=== PATIENT | female | born 1955 | race Caucasian/White ===

== ENCOUNTER 2016-05-13 09:18 | Day surgery (SDC) | payer OTHER, MEDICARE ==
[~2016-05-13] VITALS: Ht 165.1 cm; Wt 109.1 kg
[2016-05-13] VITALS (7 sets, daily range): BP systolic 107–148; BP diastolic 58–88; PULSE 67–93; RESP 14–26; O2SAT 93–100
--- NOTE | 2016-05-13 07:36 | PCM.HPANE ---
Patient Data Surgeon Admitting Provider: Attending Provider:Faye Aggarwal MD Primary Care Physician:Chiquita Paulino MD Other Provider:[facility] Reason for Visit Mixed Incontinence Ht/WT & BMI Height (Feet): 5 Height (Inches): 5 Weight (Kilograms): 110.585 Body Mass Index 40.00 Allergies Coded Allergies: Penicillins (Verified Allergy, Severe, SWELLING,HIVES, 05/12/16) azithromycin (Verified Allergy, Severe, HIVES, 05/12/16) vancomycin (Verified Allergy, Severe, HIVES, 05/12/16) FREEMAN Inhibitors (Verified Adverse Reaction, Severe, COUGH/DRY MOUTH, ) Sulfa (Sulfonamide Antibiotics) (Verified Adverse Reaction, Severe, SORES IN MOUTH, 05/12/16) colchicine (Verified Adverse Reaction, Severe, N&V, 05/12/16) Uncoded Allergies: ERYTHROMYCIN (Adverse Reaction, Severe, N/V, DIARRHEA, 05/12/16) Past Anesthesia History Anesthesia History: Denies:: Abnormal Airway, Anesthesia Reactions, Difficult Intubation, Fam Anesthesia Reaction, Malignant Hyperthermia Diabetes History Hx Diabetes?: Yes Type of Diabetes: Type II Glycemic Control: Insulin & Oral Medication MRSA MRSA: No Medications Hypertension Medication: Yes (LOSARTAN) Home Meds Incl Beta Sergio: Yes (METOPROLOL) Reported Medications Insulin Detemir (Levemir Flextouch)100 Unit/1 Ml Insuln.pen20 Unit SQ QPM 05/12/16 Milk Thistle Seed Extract (Milk Thistle Extract)87.5 Mg Yssfpik49.5 Mg PO DAILY PT UNSURE OF DOSAGE 05/12/16 Pravastatin 40 Mg Ctbcup69 Mg PO DAILY Ref 0 05/12/16 Omeprazole 20 Mg Capsule.dr20 Mg PO DAILY Ref 0 05/12/16 Metoprolol Tartrate 25 Mg Kvkmno73 Mg PO BID 30 Days Ref 0 05/12/16 Insulin Lispro (Humalog Kwikpen)200 Unit/Ml (3 Ml) Insuln.pen50 Unit SQ BID 05/12/16 Coconut Oil 1,000 Mg Capsule1,000 Mg PO DAILY 05/12/16 Vit B Comp/C/FA/Iron/Vit E (Vitamin B Complex Tablet)1 Each Tablet1 Each PO DAILY 05/12/16 [Sanctura] No Conflict Check20 Mg PO BID 05/12/16 Multivitamin (Multi Vitamin Daily)1 Each Tablet1 Each PO DAILY 30 Days Ref 0 06/23/14 Losartan Potassium 50 Mg Gpenza32 Mg PO DAILY 02/10/14 Glyburide/Metformin 5-500 mg 1 Each Tablet2 Each PO BID 02/10/14 Levothyroxine 150 Mcg Ykneww873 Mcg PO DAILY 30 Days Ref 0 02/10/14 Fenofibrate (Tricor)145 Mg Kpm368 Mg PO DAILY 30 Days Ref 0 02/10/14 Duloxetine 60 Mg Capsule.dr60 Mg PO DAILY 30 Days Ref 0 02/10/14 Discontinued Reported Medications Tramadol 50 Mg Xuqnbf68 Mg PO HS PRN For Pain Ref 0 06/23/14 Canagliflozin (Invokana)300 Mg Akprfm065 Mg PO 06/23/14 Fish Oil/Dha/Epa (Fish Oil 1,200 mg Fish Oil)1 Each Capsule1 Each PO DAILY 02/10/14 Insulin Glargine (Lantus U100 Solostar Insulin Pen)100 Unit/1 Ml Insuln.pen50 Unit SUBQ QPM-INSULIN #1 PENINJ Ref 0 02/10/14 Citalopram 40 Mg Qtilws84 Mg PO DAILY 30 Days Ref 0 02/10/14 Colesevelam HCl (Welchol)625 Mg Ottzje778 Mg PO DAILY 02/10/14 Buspirone 10 Mg Klpmnx02 Mg PO DAILY 30 Days Ref 0 02/10/14 Omeprazole Magnesium (Omeprazole)20 Mg Capsule.dr20 Mg PO DAILY 30 Days Ref 0 02/10/14 History History of ENT Problems?: Yes HEENT History: Denies:: Abnormal Airway Cataracts (developing ) Difficult Intubation Dysphagia Sinus Problem TMJ Other HEENT Pertinent History: S/P TONSILLECTOMY Hx of Heart Problems?: Yes Cardiovascular History: Positive for:: Abdominal Aortic Aneurism (MILDLY ENLARGED ASCENDING AORTA) Cardiac Surgery (HEART CATH/STENT 2006 [facility]CA STENT) Coronary Artery Disease Hypertension (HYPERLIPIDEMIA) Peripheral Vascular (LE VARICES) Denies:: AICD Heart Murmur (ECHO 02/2015 EF 60-65%) Irregular Heartbeat Pacemaker Valvular Heart Disease Other History/Comments denies any recent cardiac issues, most recent note from Dr Rendon reviewed. Hx of Respiratory Problem?: Yes Respiratory History: Positive for:: Use of C-PAP Machine (CONSUELO + W/ BIPAP) Denies:: Asthma COPD Cough Emphysema Pneumonia Tuberculosis Hx Neurologic Problems?: Yes Neurological History: Positive for:: Headaches Seizures ( stopped medications, no seizures for almost 2 years (LAST 11/2012)) TIA () Denies:: CVA Multiple Sclerosis Parkinson's Disease Other Neurological Pertinent: PT IS DISABLED FROM "STRESS SEIZURES" Hx of GI Problems?: Yes Gastrointestinal History: Positive for:: Gastroesphageal Reflux Hiatal Hernia Liver Disease (HX FATTY LIVER DISEASE W/ ELEVATED LFT'S (TO BE RECHECKED IN 1 MONTH)) Rectal Bleeding (2007- passing black stools, never found out why) Denies:: Cirrhosis Gastrointestinal Bleeding Other GI Pertinent History: S/P APPY,UMBILICAL HERNIA RPR Hx of Problems?: Yes Genitourinary History: Positive for:: Urinary Tract Infection (HX UTI'S) Other Pertinent History: C/OF FREQUENCY,URGENCY & URINARY DRIBBLING Female Hx: Positive for:: Problems with Breasts? (RT BREAST CA S/P B/L MASTECTOMY/BR AUGMENTATION W/ REVISIONS) Denies:: Currently (S/P RECTOCELE RPR) Skin History: Positive for:: History Skin Disorders? (ECZEMA/HIVES) Denies:: Pressure Ulcers Hx Musculoskeletal Problems?: Yes Musculoskeletal History: Positive for:: Musculoskeletal Trauma (LT SHOULDER RPR,RT KNEE RPR,B/L CTR'S) Hx of Psycho/Social Problems?: Yes Psycho Social History: Positive for:: Anxiety Bipolar Disorder Hx Depression Hx Surgeries?: Yes (b/l mastectomy w/ reconstr,heart cath/stent,rectocele,hyst, tonsils,appu,umb) Hx Any Other Health Problems?: Yes Other History: Positive for:: Cancer (BREAST AND CERVICAL) Hospitalization Thyroid Disease (s/p thyroidectomy) Denies:: Endocrine Disease History Blood Transfusions: Positive for:: Blood Transfusions Denies:: Blood Transfuse Reaction Hx Diabetes: Yes Hx Alcohol Use: No (FORMER)Hx Substance Use: No Smoking Status: Former Smoker Have You Smoked inLast 12 mo: NoApprox How Many Cigarettes/day: 3 PPD Stop/Bang S-Snoring: Do You Snore Loudly: Yes T-Tired: feel tired, fatigued: Yes O-Obsered: Observed not breath: No P-Blood Pressure: treated: Yes B- Body Mass Index > 35 kg/m2: Yes A- Age over 50: Yes N- Neck Large Circumference: Yes G- Gender Male: No CONSUELO Total Score: 6 CONSUELO Risk Assessment: High Risk, =/>3 Yes CONSUELO Category 4 OutPt Procedure: Yes Risk Assessment Category Category 1A: Patient has history of documented sleep apnea, and HAS NOT received any narcotic, sedative or anesthesia administration during this stay. Category 1B: Patient has history of documented sleep apnea, and HAS received any narcotic , sedative or anesthesia administration during this stay Category 2: Patient has SUSPECTED Obstructive Sleep Apnea, and HAS received any narcotic , sedative or anesthesia administration during this stay. Category 3: Patient has SUSPECTED Obstructive Sleep Apnea and HAS NOT received narcotic, sedative or anesthesia administration during this stay. Category 4: Outpatient in Procedural Areas with known sleep apnea or who screen positive for High Risk via the STOP/BANG questionnaire. Exam Exam General Appearance: Alert, Oriented X3, Cooperative, No Acute Distress HEENT/AIRWAY: MP 3 Lungs: Normal Air Movement Heart: Exam Unremarkable Meds/Labs/Diagnostics Bedside Blood Glucose: 218 Plan Impression Patient chart reviewed, patient interviewed and anesthestic plan with risks, benefits, and alternatives discussed, and informed consent obtained. NPO Status: 06/24@1830 ASA Physical Status: ASA3 Severe Disease Anesthetic Plan: GA Bene/Risks/Altern/Consents: Yes HP Complete Prior to Induction: Yes Osorio Quiroz MD May 13, 2016 07:36
[~2016-05-13 09:18] MED LIST: COCO1000 PO; DULO60CA61 PO; FENO160T PO; GLYB1TAB20 PO; INSU100I25 SQ; INSU200I SQ; LEVO150T5 PO; LOSA50TA37 PO; Levofloxacin 500 mg/100 mL D5W IV ONE; METO25TA6 PO; MILK87.5 PO; MULT-1018 PO; OMEP20CA11 PO; PRAV40TA PO; SANCTURA PO; VIT1TABL83 PO
[2016-05-13] MEDS ORDERED: EPHEDrine/NS 5 mg/mL 5 mL Syringe ONE (09:19)
[2016-05-13] MEDS ORDERED: Propofol 10,000 mCg/mL 20 mL Inj ONE (09:19)
[2016-05-13] MEDS ORDERED: Phenylephrine/NS-PF 100 mCg/mL 5 mL Syringe IVPUSH ONE (09:19)
[2016-05-13] MEDS ORDERED: Dexamethasone 4 mg/mL Inj ONE (09:19)
[2016-05-13] MEDS ORDERED: fentaNYL-PF 50 mCg/mL 2 mL Inj ONE (09:19)
[2016-05-13] MEDS ORDERED: Ondansetron 2 mg/mL 2 mL Inj ONE (09:19)
[2016-05-13] MEDS ORDERED: levoFLOXacin 500 mg/100 mL D5W Premix IV ONE (09:24)
[2016-05-13] MEDS: Lactated Ringer's 1,000 ML IV SCH ×2 (09:44→12:04)
[2016-05-13] MEDS ORDERED: MetoCLOpramide 5 mg/mL 2 mL Inj IVPUSH PRN (11:50)
[2016-05-13] MEDS ORDERED: EPHEDrine Sulfate 50 mg/mL Inj IVPUSH PRN (11:50)
[2016-05-13] MEDS ORDERED: fentaNYL-PF 50 mCg/mL 2 mL Inj IVPUSH PRN (11:50)
[2016-05-13] MEDS ORDERED: Lactated Ringer's 1,000 ML IV SCH (11:50)
[2016-05-13] MEDS ORDERED: HYDROmorphone 1 mg/mL Inj IVPUSH PRN (11:50)
[2016-05-13] MEDS ORDERED: Ondansetron 2 mg/mL 2 mL Inj IVPUSH PRN (11:50)
[2016-05-13] MEDS ORDERED: Dexamethasone 4 mg/mL Inj IVPUSH PRN (11:50)
[2016-05-13] MEDS ORDERED: Phenylephrine 10,000 mCg/mL Inj IVPUSH PRN (11:50)
[2016-05-13] MEDS ORDERED: Lactated Ringer's 500 ML IV PRN (11:50)
[2016-05-13] MEDS ORDERED: Albuterol-Ipratropium 3 mL Inhalation Solution NEB PRN (11:50)
[2016-05-13] MEDS ORDERED: Phenazopyridine 97.5 mg Tablet PO PRN (12:45)
[2016-05-13] MEDS ORDERED: HYDROcodone-APAP 5-325 mg Tablet PO PRN (12:45)
[2016-05-13] MEDS ORDERED: Ondansetron 8 mg ODT Tablet PO PRN (12:45)
--- NOTE | 2016-05-13 13:02 | PCM.ANEP1 ---
Post Anesthesia Phase 1 PACU Phase 1 Assessment Vital Signs Vital Signs Date Time Temp Pulse Resp B/P Pulse Ox O2 Delivery O2 Flow Rate FiO2 05/13/16 13:00 36.7 93 21 107/58 93 Room Air 05/13/16 12:55 92 19 118/72 99 Room Air 05/13/16 12:45 88 18 115/65 100 Simple Mask 05/13/16 12:42 36.3 92 18 112/65 100 Simple Mask 10 05/13/16 09:45 36.5 67 26 148/72 98 Room Air Anesthetic Administered: GA Level of Alertness: Awake, talking CABRERA's with Equal Strength: Yes Pain: No Nausea or Vomiting: No Oxygen Delivery: Room Air Lungs: Normal Air Movement Osorio Quiroz MD May 13, 2016 13:02
--- NOTE | 2016-05-13 13:03 | PCM.ANEP2 ---
Post Anesthesia Evaluation ASA/CMS Post Anesthesia VS in Patient's Normal Range?: Yes Resp Stable; Airway Patent?: Yes CV Function & Hydration Stable: Yes Mental Status Recovered?: Yes Pain control Satisfactory?: Yes N/V Control Satisfactory?: Yes Osorio Quiroz MD May 13, 2016 13:03
--- NOTE | 2016-05-15 00:39 | OP ---
[address] [address] OPERATIVE REPORT PATIENT: CALLIE BISHOP : 1955 MR#: [id number] ADMIT: 05/13/2016 JOB ID: [id number] DATE OF SURGERY: 05/13/2016 PREOPERATIVE DIAGNOSIS(ES): 1. Stress urinary incontinence. 2. Morbid obesity. 3. Multiple medical problems. POSTOPERATIVE DIAGNOSIS(ES): 1. Stress urinary incontinence. 2. Morbid obesity. 3. Multiple medical problems. PROCEDURE: Cystoscopy with Macroplastique injection into the urethra. SURGEON: Faye Aggarwal MD ANESTHESIA: General. INDICATIONS: The patient is a 61-year-old woman with lots of multiple medical problems, also very bothersome stress urinary incontinence, morbid obesity, counseled about treatment options and electing Macroplastique injections. PROCEDURE IN DETAIL: After appropriate informed consent was obtained, the patient was brought to the operating room. She received IV antibiotics prior to onset of the procedure. SCDs were placed. Adequate general anesthesia was induced. She was carefully placed in dorsal lithotomy position. All pressure points were carefully padded. Cleaned, prepped, and draped in the usual sterile fashion. Rigid scope was introduced in the patient's bladder. The bladder was found to be grossly normal in appearance. Her perineum was extremely obese. With some minimal difficulty, we were able to get the scope introduced into the urethra and then we were able to inject altogether two syringes of Macroplastique to try to get a good coaptation of the proximal urethra. There was minimal bleeding. The patient tolerated the procedure well. The scope was withdrawn. Bladder itself was drained completely. She was awakened and taken in stable condition to the postanesthesia care unit.
[2016-08-25] MEDS ORDERED: TROS20TA4 PO (15:41)
[2016-08-25] MEDS ORDERED: ISOS60TA2 PO (15:41)
[2016-08-25] MEDS ORDERED: CHOL10008 PO (15:41)
[2016-08-25] MEDS ORDERED: VITA-251 PO (15:41)
== END 2016-05-13 23:59 | disposition home or self-care (01) ==
LOC: SAS 09:18
PROVIDERS: ATTEND Urology
DX: N39.3 Stress incontinence (female) (male) (principal); E66.01 Morbid (severe) obesity due to excess calories; Z68.41 Body mass index [BMI] 40.0-44.9, adult; I25.10 Atherosclerotic heart disease of native coronary artery without angina pectoris; I10 Essential (primary) hypertension; E11.9 Type 2 diabetes mellitus without complications; Z95.5 Presence of coronary angioplasty implant and graft; E78.2 Mixed hyperlipidemia; Z79.4 Long term (current) use of insulin; Z79.84 Long term (current) use of oral hypoglycemic drugs; Z87.891 Personal history of nicotine dependence
CPT/HCPCS: 51715; J1100; J2250; J2370; J2405; J7120; L8606

== ENCOUNTER 2016-08-26 00:04 | Inpatient (IN) | payer OTHER, MEDICARE ==
[2016-08-26] VITALS (17 sets, daily range): BP systolic 108–169; BP diastolic 61–82; PULSE 62–100; RESP 13–26; O2SAT 86–97
[~2016-08-26] VITALS: Ht 165.1 cm; Wt 108.0 kg
[~2016-08-26 00:04] MED LIST changes: +CHOL10008 PO; +ISOS60TA2 PO; -Levofloxacin 500 mg/100 mL D5W IV ONE; -SANCTURA PO; +TROS20TA4 PO; +VITA-251 PO
[2016-08-26 07:34] LABS: BASOPHILS % (AUTO) 1.1 % (0-3); EOSINOPHILS % (AUTO) 5.1 % (0-5); MONOCYTES % (AUTO) 8.7 % (4-12); Mean Corpuscular Hemoglobin 27.3 pg (27.0-35.0); Mean Corpuscular Volume 85.6 fL (81-100); Platelet Count 340 bil/L (150-400)
[2016-08-26] MEDS ORDERED: MELO7.5O PO (08:00)
[2016-08-26] MEDS ORDERED: BUTA1CAP16 PO (08:00)
[2016-08-26] MEDS ORDERED: NITR0.4T6 SL (08:00)
[2016-08-26] MEDS ORDERED: TROS20TA4 PO (08:00)
[2016-08-26] MEDS ORDERED: ASPI-973 PO (08:00)
[2016-08-26] MEDS ORDERED: LEVO25TA5 PO (08:00)
[2016-08-26] MEDS ORDERED: LACT1CAP73 PO (08:00)
[2016-08-26] MEDS ORDERED: LEVO200T6 PO (08:00)
[2016-08-26] MEDS ORDERED: LEVO100T6 PO (08:00)
[2016-08-26] MEDS ORDERED: Heparin 1,000 Units/500 mL NS Premix IV ONE (08:06)
[2016-08-26] MEDS ORDERED: Heparin 1,000 Unit/mL 10 mL Inj ONE ×3 (08:06→10:51)
[2016-08-26] MEDS ORDERED: Heparin 10,000 Unit/1,000 mL NS Premix IV ONE ×2 (08:06→09:38)
[2016-08-26] MEDS ORDERED: fentaNYL-PF 50 mCg/mL 2 mL Inj ONE ×2 (08:47→10:11)
[2016-08-26] MEDS ORDERED: Nitroglycerin 50,000 mcg/250 mL D5W Premix IV ONE (09:26)
[2016-08-26] MEDS ORDERED: Atropine 1 mg/10 mL (Code) Syringe ONE (10:43)
[2016-08-26] MEDS ORDERED: Aspirin-Caffeine-Butalbital Tablet PO ONE (12:15)
[2016-08-26] MEDS ORDERED: 0.9% Sodium Chloride 1,000 ML IV PRN (12:28)
[2016-08-26] MEDS ORDERED: 0.9% Sodium Chloride 250 ML IV PRN (12:28)
[2016-08-26] MEDS ORDERED: Atropine 1 mg/10 mL (Code) Syringe IVPUSH PRN (12:30)
[2016-08-26] MEDS ORDERED: Ondansetron 2 mg/mL 2 mL Inj IVPUSH PRN (12:30)
[2016-08-26] MEDS ORDERED: Butalbital-Acet-Caffeine Tablet PO ONE (13:05)
--- NOTE | 2016-08-26 13:36 | NUR ---
REPORT GIVEN TO JOSE JARA R.N. PT IS ON BEDREST THROUGH 14:00. PT HAS BEEN WEARING HER CPAP MACHINE WITH 02 ADMINISTERED INTO CPAP. FIORICET GIVEN FOR HEADACHE, WILL EVALUATE.
[2016-08-26] MEDS ORDERED: Aspirin-Caffeine-Butalbital Tablet PO PRN (14:15)
[2016-08-26] MEDS ORDERED: ATOR40TA69 PO (14:18)
[2016-08-26] MEDS ORDERED: Glucose 40% Oral Gel 15 Gm Tube PO PRN ×2 (14:20→16:05)
--- NOTE | 2016-08-26 14:42 | NUR ---
Pt tx to room 2001 in stable condition.Pt's cordero catheter dc'd upon arrival and assisted to bathroom. Right groin stable after ambulating back to bed.Handoff to nurse Barber at bedside. Dr Rendon informed prior to transfer of her blood glucose 332 prior to transfer and he will fill out insulin orders via CPOE. 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
[2016-08-26] MEDS ORDERED: ALPRAZolam 0.5 mg Tablet PO PRN (15:25)
--- NOTE | 2016-08-26 15:45 | CS94 ---
[address] [address] DIAGNOSTIC CARDIAC CATHETERIZATION PATIENT: CALLIE BISHOP : 1954 MR#: [id number] ADMIT: 08/26/2016 JOB ID: [id number] PROCEDURE NOTE--CARDIAC CATHETERIZATION LABORATORY: DATE OF PROCEDURE: Friday, August 26, 2016. MOTION PICTURE CAMERA OPERATOR: Saeid Calix MD. PROCEDURES: 1. PERCUTANEOUS CORONARY INTERVENTION (PCI). a. PCI of Distal RCA--(Drug-Eluting Stent(SHANKAR)--Resolute 2.75 x 26 mm. b. SHANKAR of Mid RCA--Xience Alpine 2.75 x 23 mm. CLINICAL DETAILS: This 61-year-old diabetic woman is in the Catheterization Laboratory after diagnostic coronary angiogram performed because of several months of new and progressive ischemic chest discomfort consistent with unstable angina including rest spells and nocturnal episodes. PCI is requested for apparent culprit subtotal mid right coronary lesion at the proximal edge of a prior stent. There are also three significant eccentric lesions in the large OM branch. PROCEDURAL DETAILS: The patient was on the catheterization table with an indwelling 6-Libyan sheath in the right common femoral artery. She had received 81 mg aspirin on her chronic aspirin regimen this morning. PCI of Distal RCA; and of Mid RCA: The diagnostic images were reviewed and discussed. Decision was made to proceed with Intervention to revascularize the apparent culprit subtotal focal lesion proximal to the previously placed RCA stent near the acute margin. The artery is noted to be severely diffusely diseased including intermediate disease in the proximal RCA and significant disease proximal to the culprit lesion; as well as a significant (80%) diffuse lesion in the distal RCA prior to the crux. The Distal RCA lesion and the Mid RCA lesion are the treatment sites. For Intervention she received a loading dose of 600 mg Plavix p.o. Procedural anticoagulation was obtained with Bolus IV Heparin to achieve a therapeutic ACT. Large doses of heparin were required. Aliquots of NTG IC were used during the procedure. A 6-Libyan JR-4 Guide catheter was inserted through the already present 6-Libyan RFA sheath; and intubated the RCA for Intervention. PREDILATATION: The subtotal 98% Mid RCA lesion proximal to the prior stent (LUCA-3 flow) was predilated with a Trek RX PTCA Balloon--2.5 x 15 mm--inflated several times to 18 atmospheres. The same balloon was then used to predilate the Distal RCA treatment site inflated to maximum 10 atmospheres. STENTS: A Resolute SHANKAR--2.75 x26 mm--was inserted for the distal lesion but unable to advance past the proximal lesion. A 2nd a"ten" wire--BMW(Balanced Heavyweight) was inserted alongside the initial interventional wire, which was a BMW Wire--0.014 inch x1 80 cm--that had been placed in the RPLB. Additional predilatation of the proximal lesion was also required using a Noncompliant Trek NC Balloon--2.5 x 15 mm--inflated to maximum 10 atmospheres. Then, the stent advanced to the Distal RCA and was deployed at 16 atmospheres. There was an excellent angiographic result. Next, the proximal lesion was treated--also requiring the balanced heavyweight ten wire. A Xience Alpine Stent--2.75 x 23 mm--was placed across the subtotal lesion and the adjacent proximal narrowing, and deployed at 20 atmospheres. The most proximal segment of intermediate narrowing was not treated. Completion angiograms show an excellent angiographic result with no residual lesion; LUCA-3 flow; and no evident angiographic complication. Procedure without difficulty. Patient tolerated procedure well. No complication. A prior side-arm sheath angiogram had showed adequate RFA access for closure device. Arterial hemostasis was obtained without difficulty with a Perclose suture. The patient was transferred from the Catheterization Laboratory chest-pain free and in stable condition to the [facility] unit for ongoing care. I discussed the procedure, findings, and management considerations with the patient and her Daughter; as well as with Cardiology, Dr. Rendon. FINDINGS: 1. PCI of 80% diffuse Distal RCA lesion--Resolute SHANKAR 2.75 x 26 mm. 2. PCI--SHANKAR of subtotal Mid RCA culprit lesion--Xience Alpine 2.75 x 23 mm. RECOMMENDATIONS: 1. ECASA--Indefinitely. 2. Plavix--plan one year if well tolerated including with ongoing Cardiology follow-up. May consider lifetime Plavix. I discussed with the patient and her Daughter the critical importance of mandatory dual antiplatelet therapy including not to miss Plavix for any reason without immediate Cardiology consultation. 3. Cardiology follow-up including further consideration of the LCX lesions. MTDD
[2016-08-26] MEDS: Insulin LISPRO 300 Unit/3 mL Inj SUBQ SCH ×2 (17:30→22:05)
[2016-08-26] MEDS ORDERED: INSULIN LISPRO 50 UNIT SQ SCH (20:30)
[2016-08-26] MEDS ORDERED: GLYBURIDE PO SCH (20:30)
[2016-08-26] MEDS ORDERED: METFORMIN PO SCH (20:30)
[2016-08-26] MEDS ORDERED: Insulin GLARgine 100 Unit/mL Syringe SUBQ SCH (21:00)
[2016-08-27] VITALS (14 sets, daily range): BP systolic 109–170; BP diastolic 46–79; PULSE 72–84; RESP 14–24; O2SAT 83–99
[2016-08-27] MEDS ORDERED: Pantoprazole 40 mg ER24 Tablet PO SCH (06:30)
--- NOTE | 2016-08-27 06:31 | NUR ---
NOC PT has been up ad ivette to BR. Pt denies any CP. V/S WNL. R groin site intact with no pain, hematoma or drainage noted. Pt planning for d/c today. WIll CTM.
[2016-08-27] MEDS ORDERED: DULoxetine 30 mg DR Capsule PO SCH (08:30)
[2016-08-27] MEDS ORDERED: LEVOTHYROXINE 200 MCG PO SCH (08:30)
[2016-08-27] MEDS ORDERED: Tolterodine ER 2 mg ER24 Capsule PO SCH (08:30)
[2016-08-27] MEDS ORDERED: Isosorbide Mononitrate 60 mg ER24 Tablet PO SCH (08:30)
[2016-08-27] MEDS ORDERED: Lactobacillus Rhamnosus 10 Bil Unit Capsule PO SCH (08:30)
[2016-08-27] MEDS: Insulin LISPRO 300 Unit/3 mL Inj SUBQ SCH ×3 (09:04→18:09)
--- NOTE | 2016-08-27 11:29 | PCM.PNCARD ---
Subjective Date of service August 27, 2016 History of Present Illness Yesterday about 4 pm developed severe chest heaviness while moving around in the room; chest heaviness was lingering for 15 min and she was given nitro s/l; it did not help much and actually chest heaviness radiated to her throat and jaw ; after second s/l nitro symptoms dissipated in 5 min. She did not feel lightheaded, or nauseated or clammy. On EKG she had slight ST depression in lateral leads. She denies having another severe chest heaviness, but she has been having slight chest heaviness with moving around in the room which she did not report to anybody; states that slight exertional chest heaviness usually subsides if she lays down and rests. I ambulated her in the [place]o today and in 1min and 30 sec she developed midsubsternal chest heaviness 2/10 which got worse with further walking and radiated to her left shoulder, felt lightheaded, became emotional about it; no dysrhythmia was noted on telemetry that moment, she was in sinus rhythm with HR in 80s; her BP was 147/72 mmHg; chest heaviness was lingering after resting; later felt a little nauseous; EKG did not show any ischemic changes; chest heaviness dissipated in 5 min after the second tab Nitro s/l. Denies having SINGH, she does not have symptoms of nocturnal pulmonary congestion. Exam Vital Signs Vital Sign - Last Date Time Temp Pulse Resp B/P Pulse Ox O2 Delivery O2 Flow Rate FiO2 08/27/16 11:01 73 08/27/16 10:57 36.7 16 147/72 96 Room Air 08/26/16 16:59 3.00 Intake and Output 08/26/16 08/26/16 08/27/16 Cumulative From/Thru 15:00 23:00 07:00 08/26/16 07:40 - 08/27/16 06:11 Intake Total 1310 ml 590 ml 1900 ml Output Total 1750 ml 1750 ml Balance -440 ml 590 ml 150 ml Intake Oral 360 ml 590 ml 950 ml IV Total 950 ml 950 ml Output Urine Total 1750 ml 1750 ml # Voids 2 2 Additional Information: General: no ACD EENT: MMM, sclera unicteric Neck: supple, no thyromegaly Pulmo: normal breathing sounds bilaterally, no crackles, no wheezing Cardio: RRR, normal S1 and S2, no murmur appreciated Abdomen: nontender with palpation Extremities: no LE edema Neuro: A&Ox3, no gross abnormalities Lab and Diagnostics Result Diagram: 08/26/16 0730 08/27/16 1010 12-lead ECG On telemetry: sinus rhythm with HR in 70s-80s, no dysrhythmia On Ekg today: sinus rhythm with HR 75 bpm, no ischemic changes Assessment & Plan Assessment This is 61 y/o lady with hx of CAD , AR and RCA stenting in 2006 (at [facility], in [place]), HTN, HLD, heavy tobacco smoking hx in the past, FH of early CAD who has been experiencing exertional chest pain/heaviness, and had abnormal myocardial perfusion study on 08/09/[address] ([address] [facility]); she had elective coronary angiography with PCI and DESx2 placements to RCA done on 08/26/2016 by director of staff development Dr. Calix. The patient also has severe atherosclerotic disease in left circumflex. She has preserved cardiac function. She continues having exertional chest heaviness. - CAD, s/p DESx2 placement to RCA 08/26/2016, also has severe disease in left circumflex; she continues experiencing exertional chest heaviness; I discussed the case with director of staff development Dr. Calix who advised to keep the patient NPO for possible repeat cardiac cath today to reassess stents and left circulmflex artery. Her right groin area (cardiac cath access site) is not tender with palpation, no hematoma, no bleeding, no bruits with auscultation. She ambulates freely. Of note: the patient told me today that in 2007 while visiting in [place] she had chest pain, thought that she had heart attack, was hospitalized and found to be very anemic, found to have GI bleeding, had tarry stool; had the full work up and source was not identified. Her ASA and Clopidogrel were stopped, and she did not take clopidogrel the full year she needed to for her RCA stent she had in 2006. She denies having any other episodes of GI bleed. She tells me that she restarted ASA 6 months ago. # keep the patient NPO in the anticipation of coronary angiography today # check CK/CK MB, Trop T, BMP # continue current medications without change. # I explained to the patient in details all of this above. The case and management was discussed and coordinated with director of staff development Dr. Calix. Problems: Caesar Cobos PA-C August 27, 2016 11:29
[2016-08-27 11:41] LABS: Creatine Kinase 68 U/L (21-215)
--- NOTE | 2016-08-27 13:22 | NUR ---
2nd episode of chest discomfort at 1310, radiating to left arm and to back, nausea present, no SOB, no diaphoresis. SR on tele, BP stable. Dr. Calix aware, pharmaceutical laboratory technician team called in. 2 SL Nitro, 2mg IV morphine administered. Patient is on 2L/NC. Denies SOB. 12-lead EKG repeated/noted. No change in pain level. IV SLs X2, flushed/patent. Dr. Singleton at bedside. Awaiting pharmaceutical laboratory technician team.
[2016-08-27] MEDS ORDERED: Nitroglycerin 50,000 mcg/250 mL D5W Premix IV ONE (13:36)
[2016-08-27] MEDS ORDERED: Heparin 1,000 Unit/mL 10 mL Inj ONE ×2 (13:36→14:57)
[2016-08-27] MEDS ORDERED: Heparin 10,000 Unit/1,000 mL NS Premix IV ONE ×2 (13:36→15:05)
[2016-08-27] MEDS ORDERED: Heparin 1,000 Units/500 mL NS Premix IV ONE (13:36)
[2016-08-27] MEDS ORDERED: fentaNYL-PF 50 mCg/mL 2 mL Inj ONE ×2 (14:06→14:31)
[2016-08-27] MEDS ORDERED: Adenosine Inj 40 ML IV ONE (14:47)
[2016-08-27] MEDS ORDERED: 0.9% Sodium Chloride 250 ML ONE ×2 (14:47→15:26)
[2016-08-27] MEDS ORDERED: Adenosine 3 mg/mL 2 mL Inj ONE (15:26)
--- NOTE | 2016-08-27 17:37 | NUR ---
To manager labor delivery this afternoon for reassessment, back to room at 1620. No further chest discomfort. Groin site bruised, scant ooze under clear dressing/unchanged, site tender. Sinus rhythm/no ectopy, VSs q 15min/recovery in room. RA sats <90%, placed on NC at 4L to maintain sats > 92%. Denies SOB. Supportive family at bedside. Bedrest for now. Continue to monitor.
--- NOTE | 2016-08-27 18:11 | NUR ---
[facility] signed
--- NOTE | 2016-08-27 19:21 | NUR ---
Right groin site with scant ooze, tender to palp, 3+ distal pulses. No further chest discomfort. SR on tele,, BP stable. Insulin for elevated blood glucose. Transferring to [facility] for probable CABG. Report called to Bela MCQUENE, and to transport team.
--- NOTE | 2016-08-27 19:31 | CS94 ---
[address] [address] DIAGNOSTIC CARDIAC CATHETERIZATION PATIENT: CALLIE BISHOP : [birth year] MR#: [id number] ADMIT: 08/26/2016 JOB ID: [id number] PROCEDURE NOTE--CARDIAC CATHETERIZATION LABORATORY: DATE OF PROCEDURE: Saturday, August 27, 2016. VITREO RETINAL SURGEON: Saeid Calix MD. PROCEDURES: 1. Coronary Angiogram--Urgent. 2. Percutaneous Coronary Intervention (PCI)--Diagnostic: a. FFR of LAD. CLINICAL DETAILS: This 61-year-old diabetic woman presents to the Catheterization Laboratory urgently for follow-up coronary angiogram because of several episodes of angina over the past 24 hours while in the hospital after PCI. She has had angina with small amounts of exertion. ECG initially showed subtle (not definite) ST flattening in lateral leads which are not even present on the most recent ECG during chest pain. She is in the hospital after she was admitted yesterday as an outpatient for cardiac catheterization for evaluation of unstable angina with a three-month history of ischemic chest discomfort that has been progressive including rest spells, and nocturnal spells. At the diagnostic procedure yesterday she was found to have an apparent culprit subtotal Mid RCA lesion at the proximal edge of a prior stent that was placed at [facility] in [place] ([facility]) . The right coronary artery is diffusely diseased including diffuse moderate proximal lesions, the mid vessel culprit lesion; and a significant diffuse distal lesion prior to the RCA bifurcation. Yesterday, the RCA was treated including the Distal lesion (Resolute SHANKAR 2.75 x 26 mm); and the culprit subtotal Mid RCA (Xience Alpine 2.75 x 23 mm). The diagnostic coronary angiogram also showed multiple significant lesions in the proximal circumflex (90%); and in the large branching OM at two sites. There was also an angiographically unimpressive intermediate focal lesion just after the trifurcation of the LAD diagonal and 1st septal mechanical engineering intern (0-1-0 lesion). We also noted the patient has a history of GI bleed that occurred less than one year after her initial Cypher stent placement requiring early discontinuation of Plavix. Full details are not available of this episode that happened in [place]; but the patient understands there was a full workup including a "GI camera" without a source of her GI bleed identified. PROCEDURAL DETAILS: I discussed the findings, impressions and management considerations with her and her and Daughter. We discussed the recommendation to proceed urgently now with follow-up catheterization for definitive diagnosis and to guide management decisions, including medical therapy, percutaneous coronary intervention, or consideration of bypass surgery. We discussed the complexities of the clinical scenario including the concern for chest discomfort early after PCI as well as her multi-vessel CAD in the setting of diabetes. We discussed the procedure including possible risks and complications. We discussed bleeding, infection, blood clot; as well as injury to nerve, artery, vein or kidney; and also arrhythmia, drug reaction; or others. We discussed treatment as needed including surgery, pacemaker, transfusion. We discussed more serious complications that can occur including stroke, heart attack, cardiac arrest, and emergency surgery including transfer for coronary bypass. After questions and discussion, she signed informed consent to proceed after which she was taken to the Catheterization Laboratory where she was prepped sterilely and draped. She had received her daily aspirin, and Plavix. CORONARY ANGIOGRAM: The right groin access site with Perclose closure from yesterday appears intact with only minimal ecchymosis and a strong pulse with no bruit or pulsatile mass. Arterial access was obtained without difficulty in the right common femoral artery using fluoroscopic localization over the femoral head and modified Seldinger technique to insert a 10- cm, 6 -Ukrainian side-arm sheath. Catheters were advanced and exchanged over a long 0.035 inch J tipped guidewire. The right coronary artery was 1st imaged with a 6-Ukrainian JR-4 guide. Then, the left coronary artery was imaged with a 6-Ukrainian JL-4 diagnostic catheter. LV not entered. DIAGNOSTIC PCI with FFR of LAD: The diagnostic images were reviewed and decision was made to proceed with FFR of the LAD directed at the angiographically intermediate lesion at the distal bifurcation of LAD septal mechanical engineering intern and moderate size (2.0 mm) Diagonal branch. The LAD lesion is eccentric and may be as much as 60% to 70% narrowed angiographically in some views. For Intervention, a 6-Ukrainian EBU-4 catheter was used after an EBU-3.5 guide catheter was initially too small. Procedural anticoagulation was achieved with Bolus IV Heparin to achieve therapeutic ACT. A [email or web address] FFR wire was prepared, calibrated, and inserted in the LAD with equalization; and advanced to the Distal LAD without difficulty. FFR was performed initially with intravenous adenosine. FFR with the wire distally but prior to adenosine was 0.89. Then, with adenosine, the FFR was 0.79; but over time plateaued at about 0.85. Then adenosine was stopped and later reinstituted for a 2nd FFR trial, which was similar with lowest FFR 0.8 but plateau about 0.85 over time. There was a step-up across the LAD lesion on pullback. Then, a final FFR was done with bolus adenosine intracoronary adenosine 100 mcg and the FFR was 0.78. The overall impression was FFR consistent with ischemia. Completion angiogram showed the LAD to be intact. Procedure without difficulty. Patient tolerated procedure well. No complications. The side-arm sheath angiogram shows adequate access in the RFA for a closure device. Arterial hemostasis was obtained without difficulty using a Perclose suture. Patient was transferred from the Catheterization Laboratory, chest-pain free and stable, back to the PCU unit for ongoing care including by the Hospitalist spa consultant. I discussed the procedure, findings and management considerations with the patient and her Family at length; as well as with Cardiology; and with the Hospitalist service; and with CT surgery at [facility] (Dr. Terry). FINDINGS: 1. LMCA: Intact. The left main coronary artery is large, moderate length, and there are no angiographic lesions. 2. LAD: 60% to 70% focal early Mid LAD lesion noted at the trifurcation of the LAD, septal mechanical engineering intern one, and moderate-sized dominant diagonal branch (2-2.5 mm). The LAD is a large transapical vessel. The lesion in the LAD at the bifurcation of the 1st diagonal (0-1-0 lesion) is angiographically intermediate, but eccentric, and appears more severe in some views. There is LUCA-3 flow. There is also a tubular, angiographically intermediate narrowing in the LAD prior to the Diagonal (50%). 3. LCX: Note 90% focal proximal LCX lesion; and also three significant lesions in the large branching OM vessel including proximally, mid and distally prior to the bifurcation of OM-1. The LCX distribution consists primarily of the single large branching OM vessel. 4. RCA: Dominant. The right coronary artery is a diffusely diseased vessel including at the ostium, proximal mid and distal segments. The stents from yesterday including in the distal segment prior to the crux and in the mid segment crossing the RV branch at the site of a prior Cypher stent are widely patent and fully intact. The RV branch has an ostial lesion but appears unchanged, and with LUCA-3 flow. The proximal RCA has diffuse angiographically 70% narrowing. The ostial RCA has a focal 50% to 60% narrowing (ostium about the size of the 6-Ukrainian catheter but without damping on engaging). The PDA and PLB are only moderate sized vessels. CONCLUSIONS: 1. Coronary Artery Disease (CAD)--Three-Vessel CAD including angiographically intermediate, but physiologically significant, focal 60% to 70% lesion of early Mid LAD at the bifurcation of diagonal; and also multiple severe lesions of proximal LCX and of OM-1; and severely diffusely diseased RCA with intact Interventional result after PCI yesterday of Mid and Distal RCA. 2. FFR of LAD--consistent with ischemia in LAD territory. RECOMMENDATIONS: COMMENT: I discussed the details of her findings with Cardiology, Dr. Rendon, and with Heart Surgery. Her current clinical scenario is driven by her chest pain, not resolved after successful interventional treatment of the apparent culprit RCA subtotal stenosis. The proximal LCX lesion appears severe enough to account for residual angina and could be treated interventionally. Interventional treatment of the LCX would also include additional stenting of the diffusely diseased large OM. Finally, the angiographically intermediate and unimpressive LAD lesion is ultimately determined to be physiologically significant, raising consideration of CAB regarding multivessel disease in a diabetic. In favor of coronary bypass would be her multi-vessel disease and diabetes, as well as the need for multiple additional stents in the circumflex; and also additional diffuse disease in the proximal and ostial RCA; and the LAD lesion is not a favorable interventional site. Her history of prior gastrointestinal bleed may mitigate in favor of surgery as well although this is remote, and currently inactive. SANTANA
--- NOTE | 2016-09-01 10:50 | PCM.CVCATH ---
Cardiac Cath Report Date of Service August 26, 2016 Primary Indication Exertional angina. Procedure 1. Left heart catheterization. 2. Selective coronary angiogram. Vascular Access Right common femoral artery Procedure Details The patient was brought into the catheterization laboratory. The patient was nothing by mouth since midnight. The patient was prepped and sterilized in the appropriate fashion. Local anesthetic was given to the right groin region with lidocaine 1%. A percutaneous stick to the right groin region with an 18-gauge Seldinger needle was attempted but was unsuccessful. I used ultrasound guidance and micropuncture kit was able to obtain the right femoral artery. A 6 Indonesian sheath was inserted into the right femoral artery. A 6 Indonesian FL 4 diagnostic catheter was advanced and engaged into the left main. The left coronary angiography was performed in multiple views. The catheter was exchanged over the wire for a 6 Indonesian FR4 diagnostic catheter. The catheter was engaged in the right coronary ostium and the right coronary angiography was performed in multiple views. The catheter was removed over the wire and exchanged for 6 Indonesian angle pigtail catheter. LV hemodynamics were recorded. LV pullback was performed. All catheters were removed. The right femoral angiogram was performed to evaluate for closure device. The case was handed over to Dr. Calix for elective PCI of the right coronary artery. Please see the details of the PCI report. The patient was transferred back to special observation unit for post procedural monitoring after Perclose device was used for hemostasis. There were no immediate complications. Total fluoroscopy time: 25.4 which includes PCI time as well. Total fluoroscopy dosage: 5440 mGy Blood loss: 25 mL Total contrast: 270 mL Findings 1. Hemodynamics: The left ventricular systolic pressure was estimated at 165 mmHg and the left ventricular end-diastolic pressure was estimated at 33 mmHg. There is no significant gradient during pullback. 2. Selective coronary angiography: A. Left main: The artery has no evidence of significant disease. It bifurcates into the left anterior descending and left circumflex arteries. B. Left anterior descending artery: There is a 40-50% proximal mid stenosis. Off the same portion the first major diagonal artery comes off and has no evidence of significant disease. In the midportion of the LAD there is another 50-60% stenosis. C. Left circumflex artery: This is a nondominant artery. In the proximal portion there is a 70% stenosis. The stenosis is quite eccentric. In the first major marginal artery there is a 60-70% proximal stenosis . Just distal to this there is another 50-60% stenosis. The artery then trifurcates with the middle branch artery showing a 50% stenosis. D. Right coronary artery: In the mid RCA there is a 99% stenosis. Just prior to the crux there is a 50% stenosis. The proximal portion of the RCA has mild to moderate diffuse disease. The posterior descending artery has no evidence of significant disease. 4. Right femoral angiogram: There is no evidence of significant disease. Summary 1. Critical stenosis in the mid RCA. 2. At least moderate disease elsewhere in the major epicardial coronaries angiographically. Recommendations The patient will proceed with elective PCI of the mid RCA. If the patient continues to have angina then we will consider PCI of the proximal portion of the left circumflex artery. I will continue to aggressively titrate her medications. Please see Dr. Calix's PCI report. Yovani Rendon MD September 01, 2016 10:50
--- NOTE | 2016-10-23 01:10 | DIS ---
[address] [address] DISCHARGE SUMMARY PATIENT: CALLIE BISHOP : [birth year] MR#: [id number] ADMIT: 08/26/2016 JOB ID: [id number] DIS: 08/27/2016 DISCHARGE SUMMARY: DATE OF ADMISSION: Friday, August 26, 2016. DATE OF DISCHARGE: Saturday, August 27, 2016. ADMISSION DIAGNOSES: Unstable angina. DISCHARGE DIAGNOSES: 1. Unstable angina. 2. Coronary Artery Disease--3 Vessel Disease. 3. Percutaneous Coronary Intervention (PCI)--Mid and Distal RCA. SUMMARY OF HOSPITAL COURSE: This 60-year-old woman presented as an outpatient to the Cardiac Catheterization Laboratory for coronary angiogram after she developed unstable angina when she increased her activity recently. Cardiac catheterization was showed severe disease of the RCA; and PCI was performed to revascularize the apparent culprit subtotal RCA lesion. The patient remained in the hospital routinely overnight; and noted recurrent angina on resuming activity. ECG showed only very subtle NSSTT. She underwent repeat catheterization including FFR of an angiographically intermediate trifurcation lesion of the Proximal/ early Mid LAD which was consistent with ischemia. There were also multiple lesions of LCX, and OM. Management considerations included staged multivessel coronary PCI, versus CAB. In view of multivessel disease in a diabetic patient, CAB was considered. The patient was transferred to [facility] for CAB. DISCHARGE MEDICATIONS: HOSPITAL MEDICINES: 1. Aspirin 81 mg p.o. daily. 2. Plavix 600 mg Loaded; and 75 mg p.o. daily -- Discontinued. 3. Isordil 60 mg PO QD--New Medicine. ADMISSION MEDICATIONS: Recorded to include: 1. Glyburide 5 mg/metformin 500 mg, 2 tablets b.i.d. (on hold). 2. Humalog QuickPen 100 units/mg, 50 units b.i.d. 3. Levemir 100 units/mL, 30 units as prescribed. 4. Levothyroxine -- 325 mcg daily (note very high thyroxine dose; but THS elevated). 5. Losartan 50 mg tablet daily. 6. Metoprolol 25 mg b.i.d. 7. Omeprazole 20 mg t.i.d. a.c. 8. Pravastatin 40 mg daily. 9. Tricor 145 mg daily. DISPOSITION: Transferred now by ambulance to [facility] to tCT Surgery( ). FOLLOW-UP: 1. Per Dr. Terry 1. PCP follow up early after hospital discharge. 2. Cardiology Clinic follow up, Dr. Rendon, early after hospital discharge. [facility]
== END 2016-08-27 19:21 | disposition short-term general hospital (02) | DRG 247 ==
LOC: SOUO 00:04 → EDSTATUS 14:04 → SOUO 14:17 → PCC 14:17 → SOUO 08-27 19:21
PROVIDERS: ADMIT Internal Medicine Cardiovascular Disease; ATTEND Internal Medicine Cardiovascular Disease
PROC: 027035Z Dilation of Coronary Artery, One Artery with Two Drug-eluting Intraluminal Devices, Percutaneous Approach (ICD-10-PCS; principal; 2016-08-26)
PROC: 4A023N7 Measurement of Cardiac Sampling and Pressure, Left Heart, Percutaneous Approach (ICD-10-PCS; 2016-08-26)
PROC: B2111ZZ Fluoroscopy of Multiple Coronary Arteries using Low Osmolar Contrast (ICD-10-PCS; 2016-08-26)
PROC: B2111ZZ Fluoroscopy of Multiple Coronary Arteries using Low Osmolar Contrast (ICD-10-PCS; 2016-08-27)
PROC: 4A033BC Measurement of Arterial Pressure, Coronary, Percutaneous Approach (ICD-10-PCS; 2016-08-27)
DX: I25.110 Atherosclerotic heart disease of native coronary artery with unstable angina pectoris (principal); I10 Essential (primary) hypertension; Z79.82 Long term (current) use of aspirin; Z95.5 Presence of coronary angioplasty implant and graft; Z87.891 Personal history of nicotine dependence